=== PATIENT | male | born 1965 | race Caucasian/White ===

== ENCOUNTER → 2016-11-23 | Outpatient (CLI) | payer OTHER ==
[~2016-11-23] MED LIST: ASPI81TA60 PO; GABA-279 PO; GEMF600T PO; GLYB5TAB PO; HEPA500020 SQ; LISI-538 PO; LOSA100T37 PO; METF500T PO; METO12TA PO; METO50TA2 PO; MORP30TASA PO; MORP4SYR IV; MSIR30TA PO; OXYC1TAB15 PO; PLAV75TA38 PO; PRAV40TA2 PO; SPIR25TA2 PO; TRAD5TAB PO
[2016-11-23 11:39] LABS: ALBUMIN 4.4 GM/DL (3.2-5.2); ALBUMIN/GLOBULIN RATIO 1.33 (1.00-1.93); ALKALINE PHOSPHATASE 79 U/L (45-117); ALT/SGPT 53 U/L (12-78); ANION GAP 11 MEQ/L (8-16); AST/SGOT 18 U/L (15-37); BILIRUBIN,DIRECT 0.1 MG/DL (0.0-0.2); BILIRUBIN,TOTAL 0.6 MG/DL (0.2-1.0); BLOOD UREA NITROGEN 16 MG/DL (7-18); CALCIUM LEVEL 9.7 MG/DL (8.5-10.1); CARBON DIOXIDE LEVEL 27 MEQ/L (21-32); CHLORIDE LEVEL 97 MEQ/L (98-107); CHOLESTEROL LEVEL 203 MG/DL (<200); CREATININE FOR GFR 0.86 MG/DL (0.70-1.30); GLOMERULAR FILTRATION RATE > 60.0 (>60); GLUCOSE, FASTING 300 MG/DL (70-105); SODIUM LEVEL 135 MEQ/L (136-145); TOTAL PROTEIN 7.7 GM/DL (6.4-8.2); TRIGLYCERIDES LEVEL 742 MG/DL (<150)
== END ==
LOC: M LRY 08:42
DX: E11.65 Type 2 diabetes mellitus with hyperglycemia (principal); E78.1 Pure hyperglyceridemia

== ENCOUNTER → 2017-03-03 | Outpatient (REF) | payer OTHER ==
[2017-03-03 12:07] LABS: BLOOD UREA NITROGEN 20 MG/DL (7-18); CARBON DIOXIDE LEVEL 26 MEQ/L (21-32); CHLORIDE LEVEL 99 MEQ/L (98-107); CREATININE FOR GFR 1.02 MG/DL (0.70-1.30); GLUCOSE, FASTING 303 MG/DL (70-105); POTASSIUM SERUM 4.1 MEQ/L (3.5-5.1); SODIUM LEVEL 131 MEQ/L (136-145)
[2017-03-03 12:10] LABS: CALCIUM LEVEL 10.2 MG/DL (8.5-10.1)
[2017-03-03 21:26] LABS: ANION GAP 6 MEQ/L (8-16)
== END ==
LOC: M SFHCLERA 08:09
PROVIDERS: ATTEND Family Medicine
DX: E11.8 Type 2 diabetes mellitus with unspecified complications (principal)

== ENCOUNTER → 2017-11-08 | Outpatient (REF) | payer OTHER ==
[2017-11-08 12:47] LABS: CHOLESTEROL LEVEL 217 MG/DL (<200); CHOLESTEROL RISK RATIO 5.292 (<5); CPK CREATINE PHOSPHOKINASE 152 U/L (39-308); HDL CHOLESTEROL 41 MG/DL (>40); MB/CK RELATIVE INDEX 1.31 (< OR =4); NON-HDL-C 176 MG/DL; TRIGLYCERIDES LEVEL 563 MG/DL (<150)
[2017-11-08 13:28] LABS: ESTIMATED AVERAGE GLUCOSE 260 MG/DL (60-110); HEMOGLOBIN A1c 10.7 %
== END ==
LOC: M SFHCLERA 08:05
DX: E11.40 Type 2 diabetes mellitus with diabetic neuropathy, unspecified (principal); E78.1 Pure hyperglyceridemia

== ENCOUNTER → 2018-09-21 | Outpatient (REF) | payer OTHER ==
[~2018-09-21] MED LIST changes: +GABA-1171 PO; -GABA-279 PO; -GEMF600T PO; +GEMF600T5 PO; +GLYB1TAB67 PO; -GLYB5TAB PO; -LOSA100T37 PO; +LOSA100T5 PO; -METF500T PO; +METF500T13 PO; -METO50TA2 PO; +METO50TA7 PO; +MORP4INJ5 IV; -MORP4SYR IV; +PLAV1TAB2 PO; -PLAV75TA38 PO; +SPIR-10 PO; -SPIR25TA2 PO
[2018-09-21 11:53] LABS: BASO # 0.1 10^3/uL (0.0-0.2); BASO % 0.8 % (0.0-1.0); EOS # 0.1 10^3/uL (0.0-0.50); EOS % 1.3 % (0.0-3.0); HEMATOCRIT 44.8 % (42.0-52.0); HEMOGLOBIN 14.9 g/dl (13.5-17.5); LYMPH # 1.7 10^3/uL (1.5-4.5); LYMPH % 27.2 % (24.0-44.0); MEAN CORPUSCULAR HEMOGLOBIN 29.4 pg (27.0-33.0); MEAN CORPUSCULAR HGB CONC 33.3 g/dl (32.0-36.5); MEAN CORPUSCULAR VOLUME 88.5 fl (80.0-96.0); MONO # 0.4 10^3/uL (0.0-0.8); MONO % 6.7 % (0.0-5.0); NEUTROPHILS # 4.1 10^3/uL (1.8-7.7); NEUTROPHILS % 63.4 % (36.0-66.0); PLATELET COUNT, AUTOMATED 176 10^3/uL (150-450); RED BLOOD COUNT 5.06 10^6/uL (4.30-6.10); WHITE BLOOD COUNT 6.4 10^3/uL (4.0-10.0)
[2018-09-21 12:21] LABS: HEMOGLOBIN A1c 10.6 %
[2018-09-21 12:34] LABS: ALT/SGPT 211 U/L (12-78); BILIRUBIN,TOTAL 0.4 MG/DL (0.2-1.0); BLOOD UREA NITROGEN 15 MG/DL (7-18); CALCIUM LEVEL 9.4 MG/DL (8.5-10.1); CARBON DIOXIDE LEVEL 26 MEQ/L (21-32); CHLORIDE LEVEL 104 MEQ/L (98-107); CHOLESTEROL LEVEL 204 MG/DL (<200); CHOLESTEROL RISK RATIO 4.975 (<5); CREATININE FOR GFR 0.85 MG/DL (0.70-1.30); GLOMERULAR FILTRATION RATE > 60.0 (>56); GLUCOSE, FASTING 248 MG/DL (70-100); HDL CHOLESTEROL 41 MG/DL (>40); NON-HDL-C 163 MG/DL; POTASSIUM SERUM 4.3 MEQ/L (3.5-5.1); SODIUM LEVEL 139 MEQ/L (136-145); TOTAL PROTEIN 7.4 GM/DL (6.4-8.2); TRIGLYCERIDES LEVEL 423 MG/DL (<150)
[2018-09-21 12:47] LABS: CREATININE, URINE 84.2 MG/DL; MAU/CREAT RATIO 68.8 MCG/MG (0.0-30.0)
== END ==
LOC: M SFHCLERA 08:58
PROVIDERS: ATTEND Family Medicine
DX: E11.8 Type 2 diabetes mellitus with unspecified complications (principal); D69.1 Qualitative platelet defects

== ENCOUNTER → 2021-04-22 | Outpatient (CLI) | payer OTHER ==
[~2021-04-22] MED LIST changes: -GLYB1TAB67 PO; +GLYB5TAB12 PO; -LISI-538 PO; +LISI20TA33 PO; -METO12TA PO; +METO1TAB63 PO; -OXYC1TAB15 PO; +OXYC7.5T3 PO
== END ==
LOC: M LABSMTC 12:06
PROVIDERS: ATTEND Internal Medicine Cardiovascular Disease
DX: Z20.822 Contact with and (suspected) exposure to COVID-19 (principal); I25.5 Ischemic cardiomyopathy; I25.2 Old myocardial infarction